=== PATIENT | female | born 1965 | race Asian ===

== ENCOUNTER 2021-04-24 10:23 | Emergency (ER) | payer OTHER ==
[~2021-04-24] VITALS: Ht 167.6 cm; Wt 93.9 kg
[~2021-04-24 10:23] MED LIST: CEPH500C20 PO
[2021-04-24 10:37] VITALS: TEMP 96.6
[2021-04-24 11:36] VITALS: BP 156/87
[2021-04-24] MEDS ORDERED: ACET-689 PO (16:26)
[2021-04-24] MEDS ORDERED: ACID REDUCER20 MG PO (16:27)
[2021-04-24] MEDS ORDERED: ALLO300T23 PO (22:05)
[2021-04-24] MEDS ORDERED: LEVOCETIRIZINE D5 MG PO (22:06)
[2021-04-24] MEDS ORDERED: ZESTRIL40 MG PO (22:07)
[2021-04-24] MEDS ORDERED: METO50TA27 PO (22:07)
[2021-04-24] MEDS ORDERED: METFORMIN HCL500 M1 PO (22:09)
== END 2021-04-24 11:37 | disposition home or self-care (01) ==
LOC: ED 10:23
DX: T78.3XXA Angioneurotic edema, initial encounter (principal)
CPT/HCPCS: 96372; 99283; J1100; J1200

== ENCOUNTER 2021-09-18 09:56 | Emergency (ER) | payer OTHER ==
[~2021-09-18] VITALS: Ht 167.6 cm; Wt 92.1 kg
[~2021-09-18 09:56] MED LIST changes: +ACET-689 PO; +ACID REDUCER20 MG PO; +ALLO300T23 PO; +LEVOCETIRIZINE D5 MG PO; +METFORMIN HCL500 M1 PO; +METO50TA27 PO; +ZESTRIL40 MG PO
[2021-09-18 10:03] VITALS: BP 167/85; TEMP 97.3
== END 2021-09-18 10:30 | disposition home or self-care (01) ==
LOC: ED 09:56
DX: S83.8X1A Sprain of other specified parts of right knee, initial encounter (principal); X50.1XXA Overexertion from prolonged static or awkward postures, initial encounter; Y92.122 Bedroom in nursing home as the place of occurrence of the external cause
CPT/HCPCS: 99281

== ENCOUNTER 2021-12-13 12:53 | Emergency (ER) | payer OTHER ==
[~2021-12-13] VITALS: Ht 167.6 cm; Wt 92.1 kg
[2021-12-13 13:00] VITALS: TEMP 97
[2021-12-13 13:44] LABS: PLATELET COUNT 215 K/uL (152-353)
[2021-12-13 13:52] LABS: POTASSIUM 3.9 mmol/L (3.6-5.2)
[2021-12-13 14:02] LABS: PARTIAL THROMBOPLASTIN TIME 31.6 SECONDS (24.5-33.6)
[2021-12-13 14:58] VITALS: BP 146/89
== END 2021-12-13 15:31 | disposition home or self-care (01) ==
LOC: ED 12:53
PROVIDERS: Family Medicine
DX: I10 Essential (primary) hypertension (principal); R51.9 Headache, unspecified
CPT/HCPCS: 80053; 82550; 84484; 85027; 85610; 85730; 93005; 96374; 99284; J1885; J1940